=== PATIENT | female | born 1945 | race Caucasian/White ===

== ENCOUNTER 2021-08-05 13:47 | Inpatient (IN) ==
[2021-08-05] MEDS ORDERED: *HR* Dextrose 50 % in Water (Syg) 50 ML SYRINGE IVP PRN (21:29)
[2021-08-05] MEDS ORDERED: Dextrose Gel 15 GM/37.5 ML TUBE PO PRN ×2 (21:29)
[2021-08-05] MEDS ORDERED: D5% in Water 1,000 ML IVC PRN (21:29)
[2021-08-06] MEDS: traZODone 50 MG TABLET PO SCH (22:50)
[2021-08-06] MEDS: carBAMazepine 200 MG TABLET PO SCH (22:53)
[2021-08-06] MEDS: Apixaban 5 MG TABLET PO SCH (22:53)
[2021-08-07 06:01] LABS: Basophils % 0.3 %; Eosinophils # 0.1 K/mcL (0.0-0.6); Eosinophils % 0.9 %; Hematocrit 32.8 % (35.3-44.9); Hemoglobin 10.9 g/dL (11.5-15.4); Immature Granulocytes % 0.3 % (0-4); Lymphocytes # 2.1 K/mcL (0.6-4.6); Lymphocytes % 24.5 %; Mean Corpuscular HGB Conc 33.2 g/dL (31.6-35.5); Mean Corpuscular Hemoglobin 31.9 pg (28.0-33.3); Mean Corpuscular Volume 95.9 fL (83.0-100.0); Monocytes # 0.7 K/mcL (0.0-1.3); Monocytes % 7.8 %; Neutrophils # 5.7 K/mcL (1.6-8.9); Platelet Count 195 K/mcL (140-400); Red Blood Count 3.42 M/mcL (3.82-4.97); Red Cell Distribution Width 12.1 % (11.5-14.5); Segmented Neutrophils % 66.2 %; White Blood Count 8.7 K/mcL (4.3-11.1)
[2021-08-07 06:14] LABS: BUN/Creatinine Ratio 34 (6-26); Blood Urea Nitrogen 25 mg/dL (8-23); Calcium 8.5 mg/dL (8.6-10.3); Carbon Dioxide 26 mEq/L (23-29); Chloride 104 mEq/L (98-107); Glucose 196 mg/dL (70-105); Osmolality,Calculated 294 (280-300); Potassium 3.8 mEq/L (3.5-5.1); Sodium 137 mEq/L (136-145); eGFR For African Americans > 60 (> 60); eGFR For Non-African Americans > 60 (> 60)
[2021-08-07] MEDS: Insulin LISPRO 300 UNITS/3 ML VIAL SUBQ SCH ×5 (07:33→16:54)
[2021-08-07] MEDS: *HR* Metformin 500 MG TABLET PO SCH ×3 (07:34→17:00)
[2021-08-07] MEDS: Aspirin 81 MG TAB.CHEW PO SCH ×2 (07:34→09:36)
[2021-08-07] MEDS: *HR* Glimepiride 2 MG TABLET PO SCH ×2 (07:34→09:36)
[2021-08-07] MEDS: carBAMazepine 200 MG TABLET PO SCH ×2 (07:35→09:36)
[2021-08-07] MEDS: Metoprolol XL (24 HR) Succ 25 MG TAB.ER.24H PO SCH ×2 (07:35→09:36)
[2021-08-07] MEDS: Apixaban 5 MG TABLET PO SCH ×2 (07:35→09:36)
[2021-08-07] MEDS: amLODIPine 5 MG TABLET PO SCH ×2 (07:35→09:36)
[2021-08-07] MEDS: Venlafaxine XR (24 HR) 150 MG CAP.ER.24H PO SCH ×2 (07:35→09:35)
[2021-08-07] MEDS: Ondansetron ODT 4 MG TAB.RAPDIS SL PRN (21:58)
[2021-08-08] MEDS: carBAMazepine 200 MG TABLET PO SCH ×3 (00:01→21:00)
[2021-08-08] MEDS: Apixaban 5 MG TABLET PO SCH ×3 (00:02→21:01)
[2021-08-08] MEDS: traZODone 50 MG TABLET PO SCH ×2 (00:02→21:00)
[2021-08-08] MEDS: Ondansetron ODT 4 MG TAB.RAPDIS SL PRN ×2 (05:30→15:40)
[2021-08-08] MEDS: Insulin LISPRO 300 UNITS/3 ML VIAL SUBQ SCH ×3 (09:17→17:34)
[2021-08-08] MEDS: *HR* Metformin 500 MG TABLET PO SCH ×2 (09:34→15:40)
[2021-08-08] MEDS: amLODIPine 5 MG TABLET PO SCH (09:34)
[2021-08-08] MEDS: Metoprolol XL (24 HR) Succ 25 MG TAB.ER.24H PO SCH (09:35)
[2021-08-08] MEDS: Aspirin 81 MG TAB.CHEW PO SCH (09:35)
[2021-08-08] MEDS: *HR* Glimepiride 2 MG TABLET PO SCH (09:35)
[2021-08-08] MEDS: Venlafaxine XR (24 HR) 150 MG CAP.ER.24H PO SCH (09:35)
[2021-08-09] MEDS: Insulin LISPRO 300 UNITS/3 ML VIAL SUBQ SCH ×2 (08:52→12:50)
[2021-08-09] MEDS: *HR* Metformin 500 MG TABLET PO SCH (08:52)
[2021-08-09] MEDS: Metoprolol XL (24 HR) Succ 25 MG TAB.ER.24H PO SCH (08:53)
[2021-08-09] MEDS: Apixaban 5 MG TABLET PO SCH ×2 (08:53→20:55)
[2021-08-09] MEDS: Venlafaxine XR (24 HR) 150 MG CAP.ER.24H PO SCH (08:53)
[2021-08-09] MEDS: amLODIPine 5 MG TABLET PO SCH (08:53)
[2021-08-09] MEDS: *HR* Glimepiride 2 MG TABLET PO SCH (08:53)
[2021-08-09] MEDS: Aspirin 81 MG TAB.CHEW PO SCH (08:53)
[2021-08-09] MEDS: carBAMazepine 200 MG TABLET PO SCH ×2 (08:53→20:56)
[2021-08-09] MEDS: traZODone 50 MG TABLET PO SCH (20:55)
[2021-08-10 07:25] VITALS: BP 131/77; PULSE 79; RESP 16; TEMP 97.7; O2SAT 96
[2021-08-10] MEDS: Insulin LISPRO 300 UNITS/3 ML VIAL SUBQ SCH ×3 (09:21→12:22)
[2021-08-10] MEDS: *HR* Metformin 500 MG TABLET PO SCH ×2 (09:22→09:30)
[2021-08-10] MEDS: Apixaban 5 MG TABLET PO SCH (09:30)
[2021-08-10] MEDS: amLODIPine 5 MG TABLET PO SCH (09:31)
[2021-08-10] MEDS: Venlafaxine XR (24 HR) 150 MG CAP.ER.24H PO SCH (09:31)
[2021-08-10] MEDS: *HR* Glimepiride 2 MG TABLET PO SCH (09:31)
[2021-08-10] MEDS: Metoprolol XL (24 HR) Succ 25 MG TAB.ER.24H PO SCH (09:31)
[2021-08-10] MEDS: Aspirin 81 MG TAB.CHEW PO SCH (09:31)
[2021-08-10] MEDS: carBAMazepine 200 MG TABLET PO SCH (09:31)
== END 2021-08-10 14:30 | disposition home or self-care (01) | DRG 123 ==
LOC: INPGRE 08-06 21:29
PROVIDERS: ADMIT Family Medicine; ATTEND Family Medicine